=== PATIENT | male | born 1980 | race Two or more races ===

== ENCOUNTER 2020-12-04 11:40 | Emergency (ER) | payer OTHER ==
[~2020-12-04] VITALS: Ht 177.8 cm; Wt 83.9 kg
[2020-12-04] MEDS ORDERED: ZESTRIL2.5 MG (11:59)
[2020-12-04] MEDS ORDERED: ZOCOR20 MG (11:59)
== END 2020-12-04 14:29 | disposition home or self-care (01) ==
LOC: ER 11:40
DX: R07.89 Other chest pain (principal)